=== PATIENT | female | born 1950 | race Caucasian/White ===

== ENCOUNTER 2019-12-15 14:26 | Emergency (ER) | payer MEDICARE, OTHER ==
[2019-12-15] MEDS ORDERED: oxyCODONE 5 MG TABLET PO STA (14:42)
--- NOTE | 2019-12-15 14:49 | ED Physician Documentation ---
PD HPI UPPER EXT INJURY - Stated complaint Stated Complaint: LT WRIST PX - Chief complaint Chief Complaint: Trauma Ext - History obtained from History obtained from: Patient - History of Present Illness Location: Left, Wrist Type of injury: Fall Where injury occurred: Home Timing - onset: How many hours ago (1) Timing - duration: Hours (1) Timing - details: Abrupt onset Pain level max: 8 Pain level now: 8 Improved by: Rest, Ice, Immobilization Worsened by: Moving, Palpating Associated symptoms: Swelling. No: Weakness, Numbness, Tingling Contributing factors: No: Anticoagulated Recently seen: Not recently seen - Additonal information Additional information: Patient is right-handed, tripped fell, landed on the left wrist. She noticed a deformity and has pain. Review of Systems Constitutional: denies: Fever GI: denies: Vomiting Skin: denies: Rash Musculoskeletal: denies: Neck pain, Back pain Neurologic: denies: Focal weakness, Numbness, Confused, Headache, Head injury PD PAST MEDICAL HISTORY - Past Medical History Past Medical History: No - Present Medications Home Medications: Ambulatory Orders Medication Instructions Recorded Confirmed Oxycodone HCl/Acetaminophen 1 - 2 each PO Q6H PRN #14 tablet 12/15/19 [Percocet 5-325 mg Tablet] - Allergies Allergies/Adverse Reactions: Allergies Allergy/AdvReac Type Severity Reaction Status Date / Time No Known Drug Allergies Allergy Verified 12/15/19 14:29 - Living Situation Living Situation: reports: With family Living Arrangement: reports: At home - Social History Does the pt have substance abuse?: No PD ED PE NORMAL - Vitals Vital signs reviewed: Yes - General General: Alert and oriented X 3, No acute distress - HEENT HEENT: Moist mucous membranes - Neck Neck: Supple, no meningeal sign - Derm Derm: Warm and dry - Extremities Extremities: Other (Tender to palpation over the distal left radius and ulna. No deformity noted. Neurovascularly intact. No snuffbox tenderness) - Neuro Neuro: Alert and oriented X 3 - Psych Psych: Normal mood, Normal affect Results - Vitals Vitals: Vital Signs - 24 hr 12/15/19 14:29 Temperature 36.5 C Heart Rate 62 Respiratory 16 Rate Blood Pressure 169/70 H O2 Saturation 99 Oxygen O2 Source Room air - Rads (name of study) Left wrist x-ray Radiology: Prelim report reviewed, EMP read contemporaneously, See rad report (Prominently displaced, comminuted distal radius fracture, with overlapping of fracture fragments. Comminuted proximal ulna fracture, with at least moderate displacement. ) post reduction xray Radiology: Prelim report reviewed, EMP read contemporaneously, See rad report (Greatly improved alignment of the distal radius and distal ulnar fractures. ) Procedures - Splint (location) L wrist Splint applied by: Physician, Tech Type of splint: Fiberglass, Sugar tong Other: Patient tolerated well, No complications, Neurovascular intact, Good alignment, Sling provided - Reduction Body part reduced: Left, Wrist Fracture or dislocation: Fracture Anesthesia: Hematoma block, Other (Ropivacaine) Reduction aftercare: NV intact, Xray confirms reduction, Alignment improved, Splint applied PD MEDICAL DECISION MAKING - ED course Complexity details: reviewed results, re-evaluated patient, considered differential, d/w patient ED course: 69-year-old female presents the emergency department with a left wrist fracture. Completely displaced distal radius and ulna. Closed reduction was performed with a hematoma block. Tolerated well. Discussed the case with Dr. Meyer, orthopedics who recommends follow-up in the office. Recommends that she call tomorrow for an appointment. Neurovascularly intact after splint application. Patient counseled regarding signs and symptoms for which I believe and urgent re-evaluation would be necessary. Patient with good understanding of and agreement to plan and is comfortable going home at this time This document was made in part using voice recognition software. While efforts are made to proofread this document, sound alike and grammatical errors may occur. Departure - Departure Disposition: 01 Home, Self Care Clinical Impression: Closed fracture distal radius and ulna Qualifiers: Encounter type: initial encounter Laterality: left Qualified Code(s): S52.502A - Unspecified fracture of the lower end of left radius, initial encounter for closed fracture Condition: Good Instructions: ED Fx Upper Ext Follow-Up: Sadiq Meyer MD [Provider Admit Priv/Credential] - Prescriptions: Oxycodone HCl/Acetaminophen [Percocet 5-325 mg Tablet] 1 - 2 each PO Q6H PRN #14 tablet PRN Reason: pain Comments: Call the orthopedic office tomorrow for an appointment to discuss surgery for your wrist. Return if you worsen. Elevate the arm whenever possible. Do not drink alcohol or drive while on narcotic pain medicine. Note that many narcotic pain relievers also contain tylenol/acetaminophen. Please ensure that your total dose of acetaminophen from all sources does not exceed 3 grams (3000mg) per day. You may constipated on this medication, take a stool softener such as "Colace" twice a day while you are on it. Also recommend a [id number] laxative such as senna or MiraLAX any day that you do not have a bowel movement. If you received narcotic pain medication in the emergency department, do not drive or operate machinery for the next 24 hours.
[2019-12-15] MEDS ORDERED: ROPIVACAINE 0.5% PF 20 ML AMPULE SUBQ STA (15:04)
--- NOTE | 2019-12-15 15:29 | XRAY Report ---
PROCEDURE: Wrist 4 View LT INDICATIONS: fall, wrist pain TECHNIQUE: 4, views of the wrist were acquired. COMPARISON: None available FINDINGS: Bones: Comminuted fractures are seen of the distal radius and distal ulna, with complete dorsal displ acement of the distal fracture fragment in relation to the radial shaft. There is overlapping of frac ture fragments of 1.5 cm. At least moderate displacement is seen of the distal ulnar fracture. No rad iocarpal dislocation can be seen. No definite intra-articular involvement is seen on these images. No suspicious bony lesions. Age-appropriate degenerative changes are seen. Scaphoid view: No scaphoid fractures are seen. Soft tissues: Associated soft tissue swelling is seen. IMPRESSION: Prominently displaced, comminuted distal radius fracture, with overlapping of fracture fragments. Comminuted proximal ulna fracture, with at least moderate displacement. Reviewed by: Arnulfo Gardner MD on 12/15/2019 2:27 PM GAEL Approved by: Arnulfo Gardner MD on 12/15/2019 2:27 PM GAEL Station ID: [id number]
--- NOTE | 2019-12-15 16:18 | XRAY Report ---
PROCEDURE: Wrist 2 View LT INDICATIONS: s/p reduction TECHNIQUE: 2 views of the wrist were acquired. COMPARISON: 12/15/2019, prereduction images FINDINGS: Bones: On these postreduction images, there is greatly improved alignment of the distal radius and di stal ulna fractures. The overlying casting material limits evaluation of fine detail. Soft tissues: No suspicious soft tissue calcifications. IMPRESSION: Greatly improved alignment of the distal radius and distal ulnar fractures. If it would be helpful for clinical management decision making, please consider a dedicated wrist CT for further evaluation, particularly if there is clinical concern for intra-articular involvement of the fracture lines. Reviewed by: Arnulfo Gardner MD on 12/15/2019 3:17 PM GAEL Approved by: Arnulfo Gardner MD on 12/15/2019 3:17 PM GAEL Station ID: [id number]
[2019-12-15 16:35] VITALS: BP 139/68
== END 2019-12-15 16:30 | disposition home or self-care (01) ==
LOC: ED 14:26
DX: S52.502A Unspecified fracture of the lower end of left radius, initial encounter for closed fracture (principal); S52.002A Unspecified fracture of upper end of left ulna, initial encounter for closed fracture; W01.0XXA Fall on same level from slipping, tripping and stumbling without subsequent striking against object, initial encounter; Y92.009 Unspecified place in unspecified non-institutional (private) residence as the place of occurrence of the external cause
CPT/HCPCS: 25605; 73100; 73110; 99283; 99284; A9270

== ENCOUNTER 2019-12-23 12:05 | Outpatient (CLI) | payer MEDICARE, OTHER ==
--- NOTE | 2019-12-23 12:14 | XRAY Report ---
Reason: LEFT WRIST FRACTURE Procedure Date: 12/23/2019 Accession Number: [id number] / [id number] Procedure: WCP - Wrist 3 View LT CPT Code: Final Report FULL RESULT: PROCEDURE: Wrist 3 View LT INDICATIONS: LEFT WRIST FRACTURE TECHNIQUE: 3 views of the wrist were acquired. COMPARISON: X-ray wrist 12/15/2019. FINDINGS: Bones: There remains relatively good anatomic alignment of distal radial and ulnar metaphyseal fractures with impaction and comminution. There remains slight dorsal angulation. No definitive interval sclerosis is noted. Soft tissues: No suspicious soft tissue calcifications. IMPRESSION: Stable alignment of distal radial and ulnar fractures as above. Reviewed by: Valentina Neil MD on 12/23/2019 12:12 PM PDT Approved by: Valentina Neil MD on 12/23/2019 12:12 PM PDT Station ID: [id number]
== END 2019-12-23 23:59 | disposition home or self-care (01) ==
LOC: DI.WCP 12:05
PROVIDERS: ATTEND Orthopaedic Surgery
DX: S52.532D Colles' fracture of left radius, subsequent encounter for closed fracture with routine healing (principal)

== ENCOUNTER 2020-01-01 09:19 | Outpatient (CLI) | payer MEDICARE, OTHER ==
--- NOTE | 2020-01-01 10:05 | XRAY Report ---
Reason: LEFT RADIUS COLLES FRACTURE Procedure Date: 01/01/2020 Accession Number: [id number] / [id number] Procedure: WCP - Wrist 3 View LT CPT Code: Final Report FULL RESULT: PROCEDURE: Wrist 3 View LT INDICATIONS: LEFT RADIUS COLLES FRACTURE TECHNIQUE: 3 views of the wrist were acquired. COMPARISON: 12/23/2019 FINDINGS: Bones: Stable appearance and alignment of known mildly displaced distal left radial and ulnar fractures status post closed reduction. No suspicious bony lesions. Soft tissues: No suspicious soft tissue calcifications. IMPRESSION: Stable appearance and alignment of left distal radial and ulnar fractures. Reviewed by: Trey Shah MD on 01/01/2020 10:03 AM PDT Approved by: Trey Shah MD on 01/01/2020 10:03 AM PDT Station ID: [id number]
== END 2020-01-01 23:59 | disposition home or self-care (01) ==
LOC: DI.WCP 09:19
PROVIDERS: ATTEND Physician Assistant
DX: S52.532D Colles' fracture of left radius, subsequent encounter for closed fracture with routine healing (principal)

== ENCOUNTER 2020-02-03 08:45 | Outpatient (CLI) | payer MEDICARE, OTHER ==
--- NOTE | 2020-02-03 09:32 | XRAY Report ---
Reason: LEFT WRIST FRACTURE Procedure Date: 02/03/2020 Accession Number: [id number] / [id number] Procedure: WCP - Wrist 3 View LT CPT Code: Final Report FULL RESULT: PROCEDURE: Wrist 3 View LT INDICATIONS: LEFT WRIST FRACTURE TECHNIQUE: 3 views of the wrist were acquired. COMPARISON: 01/01/2020, 12/23/2019 and 12/15/2019 FINDINGS: Bones: Comminuted fractures of the distal radius and ulna noted. Mild dorsal displacement of the fractures is stable compared to the prior examination. Soft tissues: No suspicious soft tissue calcifications. IMPRESSION: Comminuted ulna and radius fractures stable in alignment. Reviewed by: Ingrid Prasad MD, PhD on 02/03/2020 9:31 AM PDT Approved by: Ingrid Prasad MD, PhD on 02/03/2020 9:31 AM PDT Station ID: [id number]
== END 2020-02-03 23:59 | disposition home or self-care (01) ==
LOC: DI.WCP 08:45
PROVIDERS: ATTEND Orthopaedic Surgery
DX: S52.532D Colles' fracture of left radius, subsequent encounter for closed fracture with routine healing (principal); S52.252D Displaced comminuted fracture of shaft of ulna, left arm, subsequent encounter for closed fracture with routine healing